=== PATIENT | male | born 1980 | race Caucasian/White ===

== ENCOUNTER → 2017-01-11 | Outpatient (CLI) | payer MEDICAID ==
[~2017-01-11] MED LIST: ACYCLOVIR200 MG PO; ASPIRIN81 MG PO; AUGMENTIN 875-1 EACH PO; CLARITIN10 MG PO; FLONASE16 GM NASBOTH; LINZESS145 MCG PO; LISINOPRIL20 MG PO; TOPROL XL25 MG PO; VIIBRYD40 MG PO
== END | disposition short-term general hospital (02) ==
LOC: CLPULM 07:13
DX: J44.9 Chronic obstructive pulmonary disease, unspecified (principal); R06.00 Dyspnea, unspecified; Z79.899 Other long term (current) drug therapy; Z88.8 Allergy status to other drugs, medicaments and biological substances